=== PATIENT | female | born 1955 | race Caucasian/White ===

== ENCOUNTER → 2016-06-10 | Outpatient (CLI) | payer BC ==
[~2016-06-10] MED LIST: CALC-747 PO; CYAN500T2 PO; IOHEXOL 300 MG/ML 100ml INJECTION ONE; LEVO125T11 PO; NITR100C PO; NORMAL SALINE 100 ML ONE; ONDA4TAB7 PO; PARO-38 PO; PHEN-779 PO; POTA20TA10 PO; PREN1TAB73 PO; SALINE FLUSH 10ml SYRINGE ONE
--- NOTE | 2016-06-10 13:41 | DI ---
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 Coronal and sagittal two-dimensional reformats. Automated Exposure Control and Iterative Reconstruction dose reducing techniques were utilized. Contrast: Omnipaque [address] scan was performed using radiation dose-reduction techniques. CT CHEST FINDINGS: There is a moderate sized esophageal hiatal hernia demonstrated. Cardiovascular: The heart size is normal. No pericardial effusion is present. Lymph nodes: There are no enlarged axillary, hilar, or mediastinal lymph nodes. Lungs: The lungs are normal. Bones: No suspicious or destructive osseous lesions with special attention to the right shoulder. IMPRESSION: 1. No evidence for thoracic ramo or pulmonary metastases/malignancy. 2. Moderate-sized paraesophageal hiatal hernia. 3. No suspicious or destructive osseous lesions with special attention to the right shoulder. CT ABDOMEN AND PELVIS FINDINGS: CT ABDOMEN LIVER: The liver is enlarged with diffuse fatty infiltration. The liver measures 19.6 cm craniocaudally. SPLEEN: The spleen is upper limits normal in size measuring 12.9 cm. GALLBLADDER: Unremarkable. PANCREAS: Unremarkable. ADRENAL GLANDS: Unremarkable. KIDNEYS: There is a hypodense structure involving the lower pole the right kidney anteriorly measuring 1.6 cm x 1.8 cm likely representing a complex cyst. Recommend ultrasound of the kidneys to further evaluate and rule out a solid lesion. Simple cyst within the left kidney. There is no hydronephrosis or obstructing calculus identified. AORTA: Unremarkable. LYMPH NODES: Unremarkable. STOMACH BOWEL LOOPS: There is diverticulosis throughout the sigmoid colon without diverticulitis. Mild mural thickening demonstrated about the proximal colon and cecum may be secondary to decompressed bowel although a underlying colitis is a consideration. PERITONEAL CAVITY: There is no abdominal or pelvic inflammatory mass or ascites. CT PELVIS URINARY BLADDER: Unremarkable. PELVIC VISCERA: The vaginal cuff is normal. There are no adnexal masses. OSSEOUS STRUCTURES: There are no suspicious or destructive osseous lesions demonstrated. Small to moderate-sized left hip joint effusion is suggested. IMPRESSION: 1. Hypodense structure involving the right kidney likely representing a complex cyst though recommend ultrasound to further evaluate and rule out a solid mass. 2. No abdominal or pelvic lymphadenopathy or ascites. 3. Diverticulosis of the sigmoid colon without diverticulitis. Mild mural thickening about the the proximal colon likely secondary to decompressed bowel and less likely colitis. 4. No suspicious or destructive osseous lesions. Small to moderate sized left hip joint effusion suggested. Clinical correlation about the left hip recommended. 5. Mild hepatomegaly with diffuse fatty infiltration. .
== END ==
LOC: IMA 11:21
PROVIDERS: ATTEND Orthopaedic Surgery
DX: K44.9 Diaphragmatic hernia without obstruction or gangrene (principal); K57.30 Diverticulosis of large intestine without perforation or abscess without bleeding; K63.89 Other specified diseases of intestine; K76.0 Fatty (change of) liver, not elsewhere classified; N28.9 Disorder of kidney and ureter, unspecified; D49.2 Neoplasm of unspecified behavior of bone, soft tissue, and skin
CPT/HCPCS: 71260; 74177; J7050; Q9967

== ENCOUNTER → 2016-06-11 | Outpatient (CLI) | payer BC ==
[~2016-06-11] MED LIST changes: -IOHEXOL 300 MG/ML 100ml INJECTION ONE; -NORMAL SALINE 100 ML ONE; -SALINE FLUSH 10ml SYRINGE ONE
== END ==
LOC: WC.BC 16:04
DX: Z12.31 Encounter for screening mammogram for malignant neoplasm of breast (principal); N64.59 Other signs and symptoms in breast
CPT/HCPCS: 77063; G0202

== ENCOUNTER → 2016-06-24 | Outpatient (CLI) | payer BC ==
--- NOTE | 2016-06-24 09:35 | DI ---
Indication: ITS.REASON: M89.9 Disorder of bone PROCEDURE: US RENAL: Encounter: Initial Comparison: CT chest, abdomen and pelvis dated June 10, 2016 Technique: Grayscale and color Doppler sonographic imaging of both kidneys and bladder was performed. FINDINGS: Both kidneys are present with normal cortical thickness and echogenicity. No evidence for collecting system dilatation, contour deforming mass, nephrolithiasis, or abnormal perinephric fluid collection. The right kidney measures 10.8 cm in length, and the left kidney measures 11.5 cm in length. The area of abnormality on CT appears to represent a benign cyst in the right kidney measuring 1.5 x 1.5 x 1.6 cm there may be a trace amount of calcification within the wall of the cyst. No internal Doppler flow or solid component appreciated. Left kidney shows a small 1.1 x 0.9 x 1.1 cm superior pole anechoic cyst. Bladder appears sonographically normal without debris or mass. Right ureteral jet noted IMPRESSION: The right renal lesion seen by CT appears to represent a benign cyst. Follow-up ultrasound is recommended in one year to confirm stability. .
== END ==
LOC: IMA 08:00
PROVIDERS: ATTEND Orthopaedic Surgery
DX: R93.421 Abnormal radiologic findings on diagnostic imaging of right kidney (principal); M89.9 Disorder of bone, unspecified

== ENCOUNTER 2016-11-04 10:20 | Inpatient (IN) ==
[2016-11-20 05:43] VITALS: BMI 27.2
[2016-11-20] MEDS ORDERED: FAMOTIDINE PB 20 MG/50 ML BAG IV ONE (06:00)
[2016-11-20] MEDS ORDERED: LIDOCAINE 1% (10mg/ml) 2mL INJ PF SDV ID ONE (06:00)
[2016-11-20] MEDS ORDERED: ACETAMINOPHEN 500 MG TABLET PO ONE (06:00)
[2016-11-20] MEDS ORDERED: CEFAZOLIN 1 G INJECTION IVP ONE (06:00)
[2016-11-20] MEDS ORDERED: NOZIN NASAL SWAB NAS ONE ×2 (06:00→10:22)
[2016-11-20] MEDS ORDERED: DEXAMETHASONE 4 MG/ML INJECTION IVP ONE (06:00)
[2016-11-20] MEDS ORDERED: ONDANSETRON 4 MG/2 ML INJECTION IVP ONE (06:00)
[2016-11-20] MEDS ORDERED: METOCLOPRAMIDE 10mg/2ml INJECTION IVP ONE (06:00)
[2016-11-20] MEDS: LR 1,000 ML IV SCH ×3 (06:19→08:54)
--- NOTE | 2016-11-20 06:47 | Anesthesia Preoperative Report ---
Anesthesia Preoperative Record - Date and Time Date: 11/20/16 Preoperative Diagnosis: Lt NORM (RA) M87.052 primary osteoarthritis Proposed Procedure: left total hip arthroplasty NPO Since Date: 11/19/16 NPO Since Time: 23:00 Allergies/Adverse Reactions: Allergies Allergy/AdvReac Type Severity Reaction Status Date / Time No Known Allergies Allergy Verified 11/20/16 06:03 - Vital Signs Vital Signs: Temperature 98.1 F 11/20/16 05:44 Pulse Rate 82 11/20/16 06:03 Respiratory Rate 18 11/20/16 05:44 Blood Pressure 160/92 H 11/20/16 05:44 Pulse Oximetry 95 11/20/16 05:44 Oxygen Delivery Method Room Air Height and Weight: Height 1.65 m Weight 74.2 kg Body Mass Index 27.2 - Medications Inpatient Medications: Current Medications Epinephrine HCl 0.25 mg/Bupivacaine HCl 30 ml/Morphine Sulfate 15 mg/Ketorolac Tromethamine 60 mg/Sodium Chloride 65.25 mls @ 1 mls/hr OPSITE INTRAOP ONE PRN Reason: Protocol Stop: 11/23/16 01:14 Lactated Ringer's (Lactated Ringers) 1,000 mls @ 50 mls/hr IV .Q20H ANABEL Last Admin: 11/20/16 06:19 Dose: 50 mls/hr Miscellaneous Medication (Tranexamic 1gm/Ns 100 Irr Mix) 100 ml IR O ONE Stop: 11/20/16 14:38 Sodium Chloride (Iv Flush) 10 - 80 ml IVF PRN PRN PRN Reason: Flushing Home Medications: Home Medications Medication Instructions Recorded Confirmed Type lisinopril 20 mg tablet 20 mg PO DAILY 90 Days tab 09/13/16 11/20/16 History pravastatin 20 mg tablet 20 mg PO DAILY 90 Days tab 09/13/16 11/20/16 History Mobic (Meloxicam) 15 mg tablet 15 mg PO DAILY tab 09/24/16 11/03/16 History Cyanocobalamin (Vitamin B-12) 1 tab PO DAILY 10/06/16 11/20/16 History [Vitamin B-12] Ferrous Gluconate 1 tab PO BIDWM 10/28/16 11/20/16 History Sertraline HCl [Zoloft] 50 mg PO DAILY 08/01/17 08/24/17 History ALPRAZolam [Xanax] 1 tab PO DAILY PRN 11/03/16 11/20/16 History Is Patient on Beta Puja?: Yes Beta Puja Last Dose Date/Time: 329 - Medical History Cardiovascular: Reports: Arrhythmia (afib ), Hypertension Neuro/Musculoskeletal: Reports: Cerebrovascular Accident (TIA in 2000, numb on right side no residual ), Other (aniety ) - Surgical History Cardiac Surgeries/Treatments: Reports: Cardiac Catheterization Musculoskeletal Surgery/Tx: Reports: Shoulder Arthroscopy (removed tumor right) , Total Knee Replacement (Rt TKA 2012), Other (Rt shoulder open biopsy, curettage/grafting rt prox humerus ) Reproductive Surgery/Treatment: Reports: Hysterectomy, Laparoscopy (ovarian cystectomy) Anesthesia Reactions: Other (hard to wake up ) - Social History Smoking Status: Never smoker - Pertinent Findings Laboratory: CBC and BMP 11/20/16 05:51 11/20/16 05:51 BMP 11/20/16 05:51 Sodium 142 Potassium 3.9 Chloride 98 Carbon Dioxide 30 BUN 22.0 H Creatinine 1.0 Glucose 105 Calcium 9.2 EKG Rhythm: Normal Sinus Rhythm - Physical Exam Respiratory Exam: Present: lungs clear, bilateral breath sounds equal Cardiovascular Exam: Present: regular rate and rhythm, no murmur - Airway Assessment Mallampati Score: I TMD: 3 Fingerbreadths Neck Extension: good Teeth: upper dentures, lower dentures Overall Assessment: no airway concerns - ASA ASA Score: 2 - Plan Regional/Trunk Block: Spinal - Discussion Discussion: Discussed risks/options/alternatives of anesthesia and questions answered. Patient consents. Nursing pain assessment noted. Attestation Statement: Prior to the delivery of any anesthetic medication, I examined the patient, developed the plan, obtained the patient's consent and discussed the risk and benefits of the procedure with the patient/guardian.
--- NOTE | 2016-11-20 07:23 | History & Physical Update ---
- History and Physical Update Date: 11/20/16 Update: I evaluated this patient and found no changes in the history and clinical exam findings. The treatment plan and recommendations are also unchanged from the previous documentation.
[2016-11-20] MEDS ORDERED: EPINEPHrine 0.25 MG, BUPIVACAINE 0.25% PF 30 ML, MORPHINE SULFATE 15 MG, KETOROLAC INJ ... OPSITE ONE (08:00)
[2016-11-20] MEDS ORDERED: VANCOMYCIN 1,000 MG INJECTION IAR ONE (08:55)
--- NOTE | 2016-11-20 10:16 | Anesthesia Postoperative Note ---
- Date and Time Date: 11/20/16 Time: 09:55 - Status Patient Participated in Evaluation: Patient Participated in Person Vital Signs: Temperature 98 F 11/20/16 09:22 Pulse Rate 98 11/20/16 09:22 Respiratory Rate 12 11/20/16 09:22 Blood Pressure 124/62 11/20/16 09:22 Pulse Oximetry 98 11/20/16 09:22 Oxygen Delivery Method Room Air Respiratory Function: Airway Patent EKG Rhythm: Normal Sinus Rhythm Mental Status: Alert and Oriented Pain Intensity: 3 Hydration: IV Infusing Complications During Recover: None Apparent - Follow-Up Instructions Instructions: Per Surgeon
[2016-11-20] MEDS ORDERED: DiphenhydrAMINE 25 MG CAPSULE PO PRN (10:22)
[2016-11-20] MEDS ORDERED: DiphenhydrAMINE 50 MG/ML INJECTION IVP PRN (10:22)
[2016-11-20] MEDS ORDERED: ONDANSETRON 4 MG/2 ML INJECTION IVP PRN (10:22)
[2016-11-20] MEDS ORDERED: ALPRAZolam 0.25 MG TABLET PO PRN (10:22)
[2016-11-20] MEDS: NS 1,000 ML IV SCH (10:34)
[2016-11-20] MEDS: FLECAINIDE 50 MG TABLET PO SCH ×2 (10:48→21:34)
[2016-11-20] MEDS: LISINOPRIL 20 MG TABLET PO SCH ×2 (10:49→13:55)
--- NOTE | 2016-11-20 11:44 | XRay Report ---
Indication: postoperative image PROCEDURE: XR pelvis w/ 1 view LT hip: Encounter: Initial Comparison: CT dated October 13, 2016 Findings: Postoperative changes of left total hip replacement are seen. There is expected postoperative subcutaneous gas. No evidence of hardware failure or acute fracture. No retained radiopaque surgical instruments or sponges seen. Impression: New left total hip prosthesis without evidence of immediate complication. .
[2016-11-20] MEDS: Oxycodone *IR* 5 MG TABLET PO PRN ×4 (11:53→21:37)
[2016-11-20] MEDS: ACETAMINOPHEN 325 MG TABLET PO SCH ×4 (11:54→21:33)
[2016-11-20] MEDS: OMEPRAZOLE 20 MG CAPSULE PO SCH (12:28)
--- NOTE | 2016-11-20 12:47 | Operative Note ---
- Procedure Side: left Preoperative Diagnosis: other (left femoral head avascular necrosis) Postoperative Diagnosis: Same as preoperative diagnosis. Operation: total hip arthroplasty Surgeon: Leatha Garzon MD Rehabilitation Specialist: Otoniel Arnold Complications: None. Regional/Trunk Block: Spinal Estimated Blood Loss: See Anesthesia Record. Fluids: Please see Anesthesia Record. Description of Procedure: Mrs. Olmstead and her left hip were identified and marked in the preoperative holding area. She was brought back to the operating suite and spinal anesthetic was administered. She was then placed in a lateral decubitus position with her left hip up. The left lower extremity was prepped and draped in my normal sterile fashion. Timeout was performed. The Cono-C robotic arm was used to assist with the surgery. Pelvic array was placed into the iliac brim. A direct superior approach was utilized. There was considerable fatty changes in her musculature. An approximately 12 cm incision was made in the skin and dissection carried down to the muscle fascia which was then split in line with skin incision. A checkpoint was placed in the greater trochanter. The short external rotators were identified and tagged and detached. A capsulotomy was performed and the hip dislocated. A femoral neck osteotomy was performed at the pre-templated level measuring down from the femoral head. The head was removed and acetabulum exposed. Labrum was removed. A checkpoint was placed superior to the acetabulum. The acetabulum was then registered with the robot. The robotic arm was then used to ream with a 49 reamer. The robot then was again used to place a 50 Trident cup in 40 of tilt and 25 of anteversion. A liner was then placed. The proximal femur was exposed and prepared with a cookie cutter followed by reaming and broaching to a size 5. We trialed with a +2.5 head. After thorough irrigation a final Accolade 2 size stem with 127 neck was placed. Leg length and offset were checked with the robot and were good. A final +2.5 ceramic head was placed and the hip reduced. Betadine solution was used to irrigate throughout the case. It was followed by normal saline irrigation. 1 g of TXA was allowed to sit in the wound for 5 minutes and then suctioned out. Joint cocktail was injected throughout soft tissue. The capsulotomy was repaired with Ethibond. Short external rotators were also repaired with Ethibond. 1 g of vancomycin powder was placed into the wound. The muscle fascia was then repaired with #1 Vicryl. I then left my system to close the subcutaneous tissue with 2-0 Vicryl followed by running 4-0 Monocryl skin followed by Dermabond and a sterile dressing. The patient with any placed back into supine position and taken to recovery room in the care of anesthesia.
[2016-11-20] MEDS: CYANOCOBALAMIN (B-12) 500mcg TABLET PO SCH (13:54)
[2016-11-20] MEDS: DOCUSATE SODIUM 100 MG CAPSULE PO SCH ×2 (13:54→21:34)
[2016-11-20] MEDS: LEVOTHYROXINE 100 MCG TABLET PO SCH (13:55)
[2016-11-20] MEDS: POLYETHYL GLYCOL 3350 17gm PACKET PO SCH (13:56)
[2016-11-20] MEDS: SERTRALINE 50 MG TABLET PO SCH (13:58)
[2016-11-20] MEDS ORDERED: SALINE FLUSH 10ml SYRINGE IVF PRN (14:28)
[2016-11-20] MEDS ORDERED: TRANEXAMIC ACID 1gm/NS 100ml IRR MIX IR ONE (14:37)
--- NOTE | 2016-11-20 14:46 | Orthopedic Progress Note ---
Date: Orthopedic Objective PO Vital signs: Temperature 96.1 F L 11/20/16 10:41 Pulse Rate 107 H 11/20/16 14:13 Respiratory Rate 16 11/20/16 10:43 Blood Pressure 139/72 11/20/16 14:13 Pulse Oximetry 95 11/20/16 14:13 Oxygen Delivery Method Room Air Height and Weight: Height 5 ft 5 in Weight 169 lb 1.513 oz Body Mass Index 27.2 - Labs Result Diagrams: 11/20/16 05:51 11/20/16 05:51 Abnormal lab results 11/20/16 11/20/16 Range/Units 05:51 05:51 Lymph % (Auto) 22.3 L (23-45) % Grant % (Auto) 10.6 H (0-9.0) % BUN 22.0 H (7-17) MG/DL Specimen Hemolysis 36 H (0-25) H & H 11/20/16 Range/Units 05:51 Hgb 13.1 (12-16) GM/DL Hct 40.8 (36-46) % Hospital Course Summary Disclaimer: The visit summary below is not to be considered part of the above Progress Note.
[2016-11-20] MEDS: NOZIN NASAL SWAB NAS SCH ×2 (15:04→21:33)
[2016-11-20] MEDS: FERROUS GLUCONATE 324 MG TABLET PO SCH ×2 (15:06→18:23)
[2016-11-20] MEDS: CEFAZOLIN 2 G in NS 100 ML IV SCH ×2 (15:13→23:19)
[2016-11-20] MEDS: RIVAROXABAN 20 MG TABLET PO SCH (18:26)
[2016-11-20] MEDS: PRAVASTATIN 20 MG TABLET PO SCH (21:34)
[2016-11-20] MEDS: SENNOSIDES 8.6 MG TABLET PO SCH (21:34)
[2016-11-20] MEDS ORDERED: FALL RISK - PHARMACY CONSULT MC PRN (22:39)
[2016-11-21] MEDS: NS 1,000 ML IV SCH (01:02)
[2016-11-21] MEDS: Oxycodone *IR* 5 MG TABLET PO PRN ×4 (01:13→20:58)
[2016-11-21] MEDS: LEVOTHYROXINE 100 MCG TABLET PO SCH (05:59)
[2016-11-21] MEDS: OMEPRAZOLE 20 MG CAPSULE PO SCH (05:59)
[2016-11-21] MEDS: NOZIN NASAL SWAB NAS SCH ×3 (05:59→21:24)
[2016-11-21] MEDS ORDERED: SENNOSIDES 8.6 MG TABLET PO PRN (07:25)
[2016-11-21] MEDS: POLYETHYL GLYCOL 3350 17gm PACKET PO SCH (08:03)
[2016-11-21] MEDS: DOCUSATE SODIUM 100 MG CAPSULE PO SCH ×2 (08:05→20:58)
[2016-11-21] MEDS: ACETAMINOPHEN 325 MG TABLET PO SCH ×4 (08:10→20:57)
[2016-11-21] MEDS: CYANOCOBALAMIN (B-12) 500mcg TABLET PO SCH (08:10)
[2016-11-21] MEDS: FLECAINIDE 50 MG TABLET PO SCH ×2 (08:10→21:24)
[2016-11-21] MEDS: FERROUS GLUCONATE 324 MG TABLET PO SCH ×2 (08:15→16:55)
[2016-11-21] MEDS: SERTRALINE 50 MG TABLET PO SCH (08:15)
[2016-11-21] MEDS: LORazepam 1 MG TABLET PO PRN ×2 (09:17→19:35)
--- NOTE | 2016-11-21 09:25 | Orthopedic Progress Note ---
Date: Subjective/Severity of Illness: Lauren is doing well but reports her pain is not well controlled. She has a history of anxiety and feels that is part of what she is feeling. No CP, cough or SOA. Denies racing HR. She was active yesterday with therapy. Orthopedic Objective PO Vital signs: Temperature 98.1 F 11/21/16 07:30 Pulse Rate 89 11/21/16 08:07 Respiratory Rate 18 11/21/16 07:30 Blood Pressure 107/65 11/21/16 08:07 Pulse Oximetry 98 11/21/16 07:30 Oxygen Delivery Method Room Air Height and Weight: Height 5 ft 5 in Weight 169 lb 1.513 oz Body Mass Index 27.2 - Constitutional General Appearance: Present: alert, no acute distress, mild distress - Respiratory Exam Present: non-labored - Cardiovascular Exam Present: pedal pulses intact - Extremities Exam Extremities: Present: pulses intact. Absent: calf tenderness - Surgical Site Incision: Mepilex dressing intact, no drainage - Neurological Exam Present: no deficits - Psychiatric Exam Present: alert, other (Appears anxious this AM.) - Labs Result Diagrams: 11/21/16 04:18 11/21/16 04:18 Abnormal lab results 11/21/16 11/21/16 Range/Units 04:18 04:18 RBC 2.97 L (4.00-5.20) M/MM3 Hgb 9.2 L D (12-16) GM/DL Hct 30.0 L D (36-46) % MCV 101.0 H (80-100) UM3 MCHC 30.7 L (31-37) GM/DL Calcium 8.3 L D (8.4-10.2) MG/DL H & H 11/20/16 11/21/16 Range/Units 05:51 04:18 Hgb 13.1 9.2 L D (12-16) GM/DL Hct 40.8 30.0 L D (36-46) % Orthopedic Assessment and Plan (1) Avascular necrosis of bone of left hip Status: Acute Assessment and Plan: Left NORM 11/20/16 A fib appears under control with HR and Rhy stable. Resume meds for control. Resume Xarelto for A fib and DVT coverage SCDs in place. Continue to mobilize. Add Ativan for anxiety. Hold Prinivil for BP 90/60s. Will continue to monitor. Hospital Course Summary Disclaimer: The visit summary below is not to be considered part of the above Progress Note.
[2016-11-21] MEDS ORDERED: HYDROMORPHONE 2 MG/ML INJECTION IVP PRN ×2 (10:34→20:49)
--- NOTE | 2016-11-21 15:07 | Consult Note ---
<EduarRaysa Mercy - Last Filed: 11/21/16 15:03> Consult Information - Data of Consult Patient: new to practice Consult date: 11/21/16 Requesting Physician: Aime Garzon MD Primary Care Provider: Claudy Abel MD Family Provider: Claudy Abel MD - Consult Narrative Reason for consult: Low BP History of present illness: Lauren Olmstead is a 61 y/o woman seen in consultation from Dr. Garzon for postop hypotension. She had left hip total arthroplasty on 11/20/16. BP dropped as low as 65/46 in the afternoon of 11/21/16. AntiHTN have been held. She was actually recently hospitalized on 11/04/16 for heart catheterization. Her BP was uncontrolled, and she was discharged on metoprolol tartrate 12.5 mg BID in addition for flecainide and xarelto for a-fib. Lauren was seen resting in bed but A&O x4, visiting with a friend. She denies any symptoms of hypotension - no weakness, dizziness, near-syncope, vision changes, SOA, chest pain, palpitations, nausea, abnormal diaphoresis (states that she tends to sweat a lot), abdominal pain. She also denies any recent illnesses or issues other than the elevated BP issue and hip pain. She states that her appetite has been good and denies constipation or diarrhea. PFSH HTN Stroke atrial fibrillation Anxiety, depression Hepatitis - Uncertain type, 20 years ago. IBS large hiatal hernia iron deficiency anemia Surgical History: Left total hip arthoplasty 11/20/16 Dr. Garzon. Hysterectomy without oophorectomy 1982. Right Total Knee Replacement 2012. Rt shoulder open bx, curettage and grafting of right proximal humerus 06/27/2016. Cyst removed from ovary (2016) Family History: Breast cancer - paternal aunt HTN in Mother and sister and her Maternal GM had a heart attack. - Social History Current residence: Apartment/Private Home Review of Systems Comprehensive ROS: completed and no additional positive findings except those as stated - Constitutional Constitutional: Present: as per HPI - EENMT Eyes: Present: requires corrective lenses. Absent: change in vision Nose: Absent: obstruction Mouth/Throat: Absent: sore throat - Cardiovascular Cardiovascular: Absent: chest pain, syncope, orthopnea, edema - Respiratory Respiratory: Absent: cough, dyspnea - Gastrointestinal Gastrointestinal: Absent: abdominal pain, nausea, vomiting - Genitourinary Menstruation: post hysterectomy - Musculoskeletal Musculoskeletal: Present: as per HPI - Neurological Neurological: Absent: confusion, dizziness, loss of vision, numbness, paresthesias - Psychiatric Psychiatric: Present: anxiety, depression - Endocrine Endocrine: Present: as per HPI Medications Home Medications Medication Instructions Recorded Confirmed Type lisinopril 20 mg tablet 20 mg PO DAILY 90 Days tab 09/13/16 11/20/16 History pravastatin 20 mg tablet 20 mg PO DAILY 90 Days tab 09/13/16 11/20/16 History Mobic (Meloxicam) 15 mg tablet 15 mg PO DAILY tab 09/24/16 11/03/16 History Cyanocobalamin (Vitamin B-12) 1 tab PO DAILY 10/06/16 11/20/16 History [Vitamin B-12] Ferrous Gluconate 1 tab PO BIDWM 10/28/16 11/20/16 History Sertraline HCl [Zoloft] 50 mg PO DAILY 10/28/16 11/20/16 History ALPRAZolam [Xanax] 1 tab PO DAILY PRN 11/03/16 11/20/16 History Allergies Allergy/AdvReac Type Severity Reaction Status Date / Time No Known Allergies Allergy Verified 11/20/16 06:03 Exam Vital Signs: Temperature 97.0 F 11/21/16 12:00 Pulse Rate 88 11/21/16 14:48 Respiratory Rate 16 11/21/16 12:00 Blood Pressure 77/55 11/21/16 14:46 Pulse Oximetry 100 11/21/16 12:00 Oxygen Delivery Method Room Air Height/Weight/BMI: Height 1.65 m Weight 82.3 kg Body Mass Index 27.2 - Constitutional Present: no acute distress, well nourished, well developed - Routine HEENT Exam Eye: Present: EOMI ENT: Present: mucous membranes moist. Absent: dentition normal (dentures in place) - Routine Neck Exam Absent: lymphadenopathy, thyromegaly - Routine Respiratory Exam Present: CTA bilaterally. Absent: wheezes - Routine Cardiovascular Exam Present: RRR, S1, S2 - Routine Abdominal Exam Present: soft, normoactive bowel sounds, non distended. Absent: tenderness - Routine Extremities Exam Present: no edema, pulses intact, normal capillary refill - Routine Skin Exam Present: intact, dry, warm - Routine Neurological Exam Present: alert, oriented X3, CN II-XII intact, normal speech. Absent: facial asymmetry - Routine Psychiatric Exam Present: normal affect, normal thought process, cooperative Results - Labs CBC & Chem 7: 11/21/16 04:18 11/21/16 04:18 Assessment and Plan (1) Postoperative hypotension Current visit: Yes Status: Acute DVT Prophylaxis: Xarelto GI Prophylaxis: other (Prilosec) Resuscitation Status: Full Code Assessment and Plan: Assessment Postoperative hypotension Anemia - blood loss vs. dilutional - iron deficiency anemia atrial fibrillation - on Xarelto HTN, Stroke Anxiety, depression IBS, large hiatal hernia - on PPI Plan Postop hypotension multifactorial given recent anesthesia, narcotics, and newly added BP meds in outpt setting. Hold antiHTN including lisinopril and metoprolol - monitor HR closely as we may need to give some IV BB if she becomes tachycardic. IVF bolus of 250 ml - reassess BP frequently. Renal function is stable. A-fib - continue flecainide and Xarelto. She's currently in sinus rhythm. Follow hgb trends. Discussed with Georgia Altamirano APRN with Dr. Bustos. Thank you for this consult. We will follow Lauren along with you during her hospital course. Hospital Course Summary Disclaimer: The visit summary below is not to be considered part of the above Progress Note. Sepsis Assessment - Evaluation Sepsis screening result: No Definite Risk <RachelKushal wellingtonrichard Schmidt - Last Filed: 11/21/16 16:20> Consult Information - Data of Consult Requesting Physician: Aime Garzon MD Primary Care Provider: Claudy Abel MD Family Provider: Claudy Abel MD [facility] Patient Stated Medical History Family History: Family History (Last Reviewed 10/09/16 @ 08:59 by Rena Bonilla Richard) Paternal Aunt Breast cancer Maternal Grandmother Heart attack Mother Hypertension Sister Hypertension - Social History Smoking status: Never smoker Substance use type: does not use Alcohol intake frequency: a few times a week (history alcohol abuse, has cut down to 2 bottles of rum a month) Last drink: days (ago) (7) Exam Vital Signs: Temperature 97.0 F 11/21/16 12:00 Pulse Rate 88 11/21/16 15:46 Respiratory Rate 16 11/21/16 12:00 Blood Pressure 95/65 11/21/16 15:46 Pulse Oximetry 100 11/21/16 12:00 Oxygen Delivery Method Room Air Height/Weight/BMI: Height 1.65 m Weight 82.3 kg Body Mass Index 27.2 Results - Labs CBC & Chem 7: 11/21/16 04:18 11/21/16 04:18 Assessment and Plan (1) Postoperative hypotension Current visit: Yes Status: Acute Assessment and Plan: I have independently evaluated and examined this patient. I reviewed the chart, the patient's history, and the PAYROLL ANALYST/PA's documented findings as above. We discussed and formulated the assessment and plan as above with additions as below: Mrs. Olmstead was seen with her daughter at the bedside. She underwent left TKA yesterday for avascular necrosis. Preoperative and immediately postoperatively blood pressures were stable with progressive drop in blood pressure this morning although patient was able to participate in physical therapy and has been ambulatory. She denies dizziness and reports that she's been voiding well; nursing reports small volume. 500 mL fluid bolus was given prior to my arrival for hypotension but the patient was asymptomatic when standing shortly thereafter despite systolic in the 70s. Pain control has been problematic postoperatively. Patient was supine when seen with pressure of 77/55, she was not tachycardic. Speech was fluent and she appeared relatively comfortable although described hip pain. Respirations nonlabored, good airflow. Regular rhythm, S1-S2 MAEW, sensation intact 4 extremities Hemoglobin has dropped from 13.1 preop to 9.2 this morning; will reassess this afternoon to exclude progressive anemia as contributed to hypotension. Suspect narcotics, anesthesia, antihypertensives, and mild volume depletion postoperatively are causative. May require longer term adjustment in blood pressure regimen and medications are on hold at present time. Twelve-lead EKG reviewed by myself-sinus rhythm, compatible with exam. Telemetry initiated. Thank you for allowing us to participate in this patient's care. Hospital Course Summary Disclaimer: The visit summary below is not to be considered part of the above Progress Note.
[2016-11-21] MEDS: RIVAROXABAN 20 MG TABLET PO SCH (16:55)
[2016-11-21] MEDS: SENNOSIDES 8.6 MG TABLET PO SCH (20:57)
[2016-11-21] MEDS: PRAVASTATIN 20 MG TABLET PO SCH (21:24)
[2016-11-22] MEDS: Oxycodone *IR* 5 MG TABLET PO PRN ×3 (00:50→09:08)
[2016-11-22] MEDS: LORazepam 1 MG TABLET PO PRN ×3 (04:41→22:26)
[2016-11-22] MEDS: LEVOTHYROXINE 100 MCG TABLET PO SCH (07:16)
[2016-11-22] MEDS: OMEPRAZOLE 20 MG CAPSULE PO SCH (07:16)
[2016-11-22] MEDS: NOZIN NASAL SWAB NAS SCH ×3 (07:16→22:26)
[2016-11-22] MEDS: POLYETHYL GLYCOL 3350 17gm PACKET PO SCH (09:07)
[2016-11-22] MEDS: SERTRALINE 50 MG TABLET PO SCH (09:07)
[2016-11-22] MEDS: FERROUS GLUCONATE 324 MG TABLET PO SCH ×2 (09:07→16:46)
[2016-11-22] MEDS: DOCUSATE SODIUM 100 MG CAPSULE PO SCH ×2 (09:07→20:37)
[2016-11-22] MEDS: FLECAINIDE 50 MG TABLET PO SCH ×2 (09:08→20:38)
[2016-11-22] MEDS: CYANOCOBALAMIN (B-12) 500mcg TABLET PO SCH (09:08)
[2016-11-22] MEDS: ACETAMINOPHEN 325 MG TABLET PO SCH ×4 (09:08→20:38)
--- NOTE | 2016-11-22 09:53 | Orthopedic Progress Note ---
Date: Subjective/Severity of Illness: Continues to have severe pain in left thigh only. BP improved. Orthopedic Objective Vital signs: Temperature 99.1 F 11/22/16 08:00 Pulse Rate 101 H 11/22/16 08:00 Respiratory Rate 18 11/22/16 08:00 Blood Pressure 132/77 11/22/16 09:38 Pulse Oximetry 97 11/22/16 08:00 Oxygen Delivery Method Room Air Height and Weight: Height 5 ft 5 in Weight 82.3 kg Body Mass Index 27.2 - Constitutional General Appearance: Present: alert, mild distress - Respiratory Exam Present: non-labored - Cardiovascular Exam Present: Regular Rate/Rhythm, pedal pulses intact Capillary Refill: < 2-3 Seconds - Extremities Exam Present: no edema, pulses intact, normal capillary refill - Neurological Exam Present: no deficits - Psychiatric Exam Present: alert - Wound Management Left Hip Drainage Amount: None Secondary Dressing: Mepilex Left Upper Lateral Thigh Comments: Left thigh soft and compressible - Labs Result Diagrams: 11/22/16 04:34 11/22/16 04:34 Abnormal lab results 11/21/16 11/22/16 11/22/16 Range/Units 16:28 04:34 04:34 RBC 2.47 L (4.00-5.20) M/MM3 Hgb 7.7 L D 7.6 L (12-16) GM/DL Hct 25.6 L D 25.2 L (36-46) % MCV 102.0 H (80-100) UM3 MCHC 30.2 L (31-37) GM/DL Chloride 108 H (98-107) MEQ/L Creatinine 0.6 L (0.7-1.2) MG/DL Calcium 8.1 L (8.4-10.2) MG/DL H & H 11/20/16 11/21/16 11/21/16 Range/Units 05:51 04:18 16:28 Hgb 13.1 9.2 L D 7.7 L D (12-16) GM/DL Hct 40.8 30.0 L D 25.6 L D (36-46) % 11/22/16 Range/Units 04:34 Hgb 7.6 L (12-16) GM/DL Hct 25.2 L (36-46) % Orthopedic Assessment and Plan (1) Avascular necrosis of bone of left hip Status: Acute Assessment and Plan: Xrays yesterday look good. She continues to have severe pain. BP are improved so I will start OxyCONTIN 10mg po BID scheduled to give her a baseline opioid. She was taking 15mg oxycodone q5 hours for the last month before surgery. Hospital Course Summary Disclaimer: The visit summary below is not to be considered part of the above Progress Note.
--- NOTE | 2016-11-22 14:30 | Progress Note ---
<Guera Suero - Last Filed: 11/22/16 14:26> Subjective: Lauren is seen today in follow up. She has been up to the bathroom. Is on phone at the start of our visit, multiple family members in the room. She is in no distress. Reports she is still having some pain. No other c/o are reported. Chart is reviewed for collateral information. Objective Vital signs: Temperature 98.2 F 11/22/16 12:05 Pulse Rate 103 H 11/22/16 12:05 Respiratory Rate 18 11/22/16 12:05 Blood Pressure 100/65 11/22/16 12:05 Pulse Oximetry 100 11/22/16 12:05 Oxygen Delivery Method Room Air Rhythm: Normal Sinus Rhythm Height/Weight/BMI: Height 1.65 m Weight 82.3 kg Body Mass Index 27.2 - Constitutional Present: no acute distress, obese, cooperative - Routine HEENT Exam Head: Present: normocephalic, atraumatic Eye: Present: EOMI, PERRL, normal accommodation ENT: Present: mucous membranes moist - Routine Respiratory Exam Present: CTA bilaterally. Absent: dyspnea, rales, rhonchi, crackles - Routine Cardiovascular Exam Present: RRR, S1, S2, no murmur - Routine Abdominal Exam Present: soft, normoactive bowel sounds, non distended, non tender - Routine Extremities Exam Present: tenderness. Absent: no edema, full ROM - Routine Musculoskeletal Exam Musculoskeletal: Present: no clubbing or cyanosis, limited range of motion - Routine Skin Exam Present: intact, dry, warm - Routine Neurological Exam Present: alert, oriented X3, moving all extremities - Routine Psychiatric Exam Present: normal affect, cooperative Results - Labs CBC & Chem 7: 11/22/16 04:34 11/22/16 04:34 - Impressions Xray hip/pelvis I reviewed imaging. left hip prosthesis noted. Significant stool in colon and rectal vault. Assessment and Plan (1) Postoperative hypotension Current visit: Yes Status: Acute (2) Postoperative anemia due to acute blood loss Current visit: Yes Status: Acute DVT Prophylaxis: Xarelto GI Prophylaxis: Protonix Resuscitation Status: Full Code Assessment and Plan: Medical consult Assessment AVN left hip s/p THR Postoperative hypotension Anemia - blood loss vs. dilutional - iron deficiency anemia atrial fibrillation - on Xarelto HTN, Stroke Anxiety, depression IBS, large hiatal hernia - on PPI Plan: Patient reports feeling better, she states she is anxious to go home. Still reports that pain is an issue. HGB is still low- now 7.6. (admit 13.1) BP is variable, but still some milder lows. Continue to hold BP meds for today. Repeat labs in AM- she may need transfusion prior to discharge. Continue PO iron. Constipation noted on x-ray- continue laxatives. Remains with stable HR, continue Xarelto for Atrial fib. Telemetry monitoring. Will need to resume beta-jenny when BP will tolerate. Overall, she is feeling better and does not report vertigo when she was up. - Time spent with patient 25 - 35 minutes Sepsis Assessment - Evaluation Sepsis screening result: No Definite Risk Hospital Course Summary Disclaimer: The visit summary below is not to be considered part of the above Progress Note. Hospital Course: 11/22/16 14:38 Patient reports feeling better, she states she is anxious to go home. Still reports that pain is an issue. HGB is still low- now 7.6. (admit 13.1) BP is variable, but still some milder lows. Continue to hold BP meds for today. Repeat labs in AM- she may need transfusion prior to discharge. Continue PO iron. Constipation noted on x-ray- continue laxatives. Remains with stable HR, continue Xarelto for Atrial fib. Telemetry monitoring. Will need to resume beta-jenny when BP will tolerate. Overall, she is feeling better and does not report vertigo when she was up. <Macarena Ramos - Last Filed: 11/22/16 18:21> Objective Vital signs: Temperature 98.6 F 11/22/16 16:45 Pulse Rate 100 11/22/16 16:45 Respiratory Rate 18 11/22/16 16:45 Blood Pressure 117/67 11/22/16 16:45 Pulse Oximetry 98 11/22/16 16:45 Oxygen Delivery Method Room Air Height/Weight/BMI: Height 1.65 m Weight 82.3 kg Body Mass Index 27.2 Results - Labs CBC & Chem 7: 11/22/16 04:34 11/22/16 04:34 Assessment and Plan (1) Postoperative hypotension Current visit: Yes Status: Acute (2) Postoperative anemia due to acute blood loss Current visit: Yes Status: Acute Assessment and Plan: I have independently evaluated and examined this patient. I reviewed the chart, the patient's history, and the SECTION BEAMER/PA's documented findings as above. We discussed and formulated the assessment and plan as above with additions as below: Mrs. Brown was seen with her daughter at the bedside. Patient reports that she's doing better since pain medications were modified earlier today. She's had no dyspnea on lightheadedness, or nausea. A bowel movement earlier today. She's been ambulating without difficulty. Telemetry was reviewed by myself earlier-demonstrates sinus rhythm with low-grade sinus tach. The patient is alert and cooperative, respirations are nonlabored with good airflow and clear breath sounds Cardiac rhythm is regular The left hip incisions are covered but there is no evidence of ecchymosis or bruising surrounding the incisions. Blood pressure has been stable overnight with systolics typically a little over 100. No indication of atrial fibrillation. Continue flecainide, blood pressure medications on hold. Discussed with Dr. Garzon. Hospital Course Summary Disclaimer: The visit summary below is not to be considered part of the above Progress Note.
[2016-11-22] MEDS: RIVAROXABAN 20 MG TABLET PO SCH (16:47)
[2016-11-22] MEDS: SALINE FLUSH 10ml SYRINGE IVF PRN ×2 (18:47→20:43)
[2016-11-22] MEDS ORDERED: BISACODYL 10 MG SUPPOSITORY RECTALLY SCH (20:00)
[2016-11-22] MEDS: SENNOSIDES 8.6 MG TABLET PO SCH (20:37)
[2016-11-22] MEDS: PRAVASTATIN 20 MG TABLET PO SCH (20:38)
[2016-11-22] MEDS ORDERED: FALL RISK - PHARMACY CONSULT MC PRN (20:39)
[2016-11-23] MEDS: Oxycodone *IR* 5 MG TABLET PO PRN ×3 (03:03→23:32)
[2016-11-23] MEDS: SALINE FLUSH 10ml SYRINGE IVF PRN (05:55)
[2016-11-23] MEDS: NOZIN NASAL SWAB NAS SCH ×3 (05:55→23:31)
[2016-11-23] MEDS: OMEPRAZOLE 20 MG CAPSULE PO SCH (05:55)
[2016-11-23] MEDS: LEVOTHYROXINE 100 MCG TABLET PO SCH (05:56)
[2016-11-23] MEDS: LORazepam 1 MG TABLET PO PRN (07:18)
[2016-11-23] MEDS: POLYETHYL GLYCOL 3350 17gm PACKET PO SCH (08:15)
[2016-11-23] MEDS: DOCUSATE SODIUM 100 MG CAPSULE PO SCH ×2 (08:15→20:06)
[2016-11-23] MEDS: SERTRALINE 50 MG TABLET PO SCH (08:17)
[2016-11-23] MEDS: CYANOCOBALAMIN (B-12) 500mcg TABLET PO SCH (08:17)
[2016-11-23] MEDS: FLECAINIDE 50 MG TABLET PO SCH ×2 (08:18→20:05)
[2016-11-23] MEDS: ACETAMINOPHEN 325 MG TABLET PO SCH ×4 (08:18→20:05)
[2016-11-23] MEDS: FERROUS GLUCONATE 324 MG TABLET PO SCH ×2 (08:18→17:00)
--- NOTE | 2016-11-23 09:15 | XRay Report ---
Indication: Pain PROCEDURE: XR pelvis w/ 1 view LT hip: Encounter: Initial Comparison: November 20, 2016 Findings: There is no acute fracture, dislocation or malalignment identified. Left hip replacement appears stable. Impression: No acute osseous abnormality. .
--- NOTE | 2016-11-23 09:57 | Orthopedic Progress Note ---
Date: Subjective/Severity of Illness: Lauren is doing much better per nursing and family. She was up to walk twice yesterday. Patient is sleeping comfortably when I stopped by today. I spoke with family. Orthopedic Objective Vital signs: Temperature 96.1 F L 11/23/16 07:09 Pulse Rate 95 11/23/16 07:31 Respiratory Rate 20 11/23/16 07:09 Blood Pressure 143/93 H 11/23/16 07:09 Pulse Oximetry 97 11/23/16 07:09 Oxygen Delivery Method Room Air Height and Weight: Height 5 ft 5 in Weight 81.8 kg Body Mass Index 27.2 - Labs Result Diagrams: 11/23/16 03:46 11/23/16 03:46 Abnormal lab results 11/23/16 11/23/16 Range/Units 03:46 03:46 WBC 4.2 L (4.5-11.0) T/MM3 RBC 2.43 L (4.00-5.20) M/MM3 Hgb 7.4 L (12-16) GM/DL Hct 25.1 L (36-46) % MCV 103.3 H (80-100) UM3 MCHC 29.5 L (31-37) GM/DL Carbon Dioxide 31 H (22-30) MEQ/L Creatinine 0.5 L (0.7-1.2) MG/DL H & H 11/20/16 11/21/16 11/21/16 Range/Units 05:51 04:18 16:28 Hgb 13.1 9.2 L D 7.7 L D (12-16) GM/DL Hct 40.8 30.0 L D 25.6 L D (36-46) % 11/22/16 11/23/16 Range/Units 04:34 03:46 Hgb 7.6 L 7.4 L (12-16) GM/DL Hct 25.2 L 25.1 L (36-46) % Orthopedic Assessment and Plan (1) Avascular necrosis of bone of left hip Status: Acute Assessment and Plan: pain improved on the oxycontin will put in for a rehab screen tomorrow monitor hgb Hospital Course Summary Disclaimer: The visit summary below is not to be considered part of the above Progress Note. Hospital Course: 11/22/16 14:38 Patient reports feeling better, she states she is anxious to go home. Still reports that pain is an issue. HGB is still low- now 7.6. (admit 13.1) BP is variable, but still some milder lows. Continue to hold BP meds for today. Repeat labs in AM- she may need transfusion prior to discharge. Continue PO iron. Constipation noted on x-ray- continue laxatives. Remains with stable HR, continue Xarelto for Atrial fib. Telemetry monitoring. Will need to resume beta-jenny when BP will tolerate. Overall, she is feeling better and does not report vertigo when she was up.
--- NOTE | 2016-11-23 12:18 | Progress Note ---
Subjective: Lauren continues to have difficulty with pain in her left hip but it's adequately controlled with oral medications. She reports no dyspnea, palpitations or chest pain, nausea or vomiting, or fever. She has continued to ambulate several times daily and reports having a bowel movement again today after having several stools yesterday. She denied lightheadedness. Objective Vital signs: Temperature 97.5 F 11/23/16 11:21 Pulse Rate 93 11/23/16 11:21 Respiratory Rate 16 11/23/16 11:21 Blood Pressure 163/87 H 11/23/16 11:21 Pulse Oximetry 96 11/23/16 11:21 Oxygen Delivery Method Room Air EXAM General-NAD, alert, appears much more comfortable than prior evaluations HEENT-conjugate gaze, conjunctiva clear Lungs-respirations nonlabored, good airflow, breath sounds clear anteriorly/ posteriorly Cardiac-regular rhythm, S1-S2; sinus rhythm on telemetry by my review Abd-soft, nontender, bowel sounds present although somewhat diminished Ext-without edema Neuro-sensation/dorsiflexion/plantarflexion intact distal legs bilaterally Psych-calm, cooperative - Rhythm: Normal Sinus Rhythm Height/Weight/BMI: Height 1.65 m Weight 81.8 kg Body Mass Index 27.2 Results - Labs CBC & Chem 7: 11/23/16 03:46 11/23/16 03:46 Assessment and Plan (1) Postoperative hypotension Current visit: Yes Status: Acute (2) Postoperative anemia due to acute blood loss Current visit: Yes Status: Acute DVT Prophylaxis: Xarelto Resuscitation Status: Full Code Assessment and Plan: Assessment: AVN left hip s/p THR Postoperative hypotension Anemia - blood loss vs. dilutional - iron deficiency anemia atrial fibrillation - on Xarelto HTN Hx Stroke Anxiety, depression IBS, large hiatal hernia - on PPI Plan: Clinically stable, blood pressure beginning to normalize with systolics ranging from 112-163 over the last 12 hours. Heart rate in the 90s typically, resume metoprolol at 12.5 mg twice a day; I'll reassess blood pressure later in the day to determine if lisinopril should be resumed. Hemoglobin down slightly from yesterday, likely approaching linette. Continue iron and monitor intermittently. Telemetry strips reviewed-sinus rhythm, A. fib controlled with flecainide. Continue Xarelto due to history of paroxysmal atrial fibrillation. Patient reminded to continue using of incentive spirometer and that surgical pain is temporary. IRU evaluation pending. Sepsis Assessment - Evaluation Sepsis screening result: No Definite Risk Hospital Course Summary Disclaimer: The visit summary below is not to be considered part of the above Progress Note. Hospital Course: 11/22/16 14:38 Patient reports feeling better, she states she is anxious to go home. Still reports that pain is an issue. HGB is still low- now 7.6. (admit 13.1) BP is variable, but still some milder lows. Continue to hold BP meds for today. Repeat labs in AM- she may need transfusion prior to discharge. Continue PO iron. Constipation noted on x-ray- continue laxatives. Remains with stable HR, continue Xarelto for Atrial fib. Telemetry monitoring. Will need to resume beta-jenny when BP will tolerate. Overall, she is feeling better and does not report vertigo when she was up. 11/23/16 12:26 Clinically stable, blood pressure beginning to normalize with systolics ranging from 112-163 over the last 12 hours. Heart rate in the 90s typically, resume metoprolol at 12.5 mg twice a day; I'll reassess blood pressure later in the day to determine if lisinopril should be resumed. Hemoglobin down slightly from yesterday, likely approaching linette. Continue iron and monitor intermittently. Telemetry strips reviewed-sinus rhythm, A. fib controlled with flecainide. Continue Xarelto due to history of paroxysmal atrial fibrillation. Patient reminded to continue using of incentive spirometer and that surgical pain is temporary. IRU evaluation pending.
[2016-11-23] MEDS: RIVAROXABAN 20 MG TABLET PO SCH (16:59)
[2016-11-23] MEDS: PRAVASTATIN 20 MG TABLET PO SCH (20:06)
[2016-11-23] MEDS: SENNOSIDES 8.6 MG TABLET PO SCH (20:06)
[2016-11-24] MEDS: SALINE FLUSH 10ml SYRINGE IVF PRN (05:29)
[2016-11-24] MEDS: Oxycodone *IR* 5 MG TABLET PO PRN ×4 (05:29→18:38)
[2016-11-24] MEDS: LEVOTHYROXINE 100 MCG TABLET PO SCH (05:30)
[2016-11-24] MEDS: NOZIN NASAL SWAB NAS SCH ×2 (05:30→16:07)
[2016-11-24] MEDS: OMEPRAZOLE 20 MG CAPSULE PO SCH (05:30)
--- NOTE | 2016-11-24 08:07 | Orthopedic Progress Note ---
Date: Subjective/Severity of Illness: Lauren is still having quite a bit of pain but admits it is improved with OxyContin. No CP, Cough or SOA. Bowels have moved. Appetite is fair. She did not sleep well last night. Concerned about going home and not being able to care for herself. Orthopedic Objective PO Vital signs: Temperature 96.9 F 11/24/16 04:00 Pulse Rate 87 11/24/16 04:00 Respiratory Rate 20 11/24/16 04:00 Blood Pressure 157/98 H 11/24/16 04:00 Pulse Oximetry 98 11/24/16 04:00 Oxygen Delivery Method Room Air Height and Weight: Height 5 ft 5 in Weight 180 lb 5.41 oz Body Mass Index 27.2 - Constitutional General Appearance: Present: alert, cooperative, no acute distress - Respiratory Exam Present: non-labored - Cardiovascular Exam Present: Regular Rate/Rhythm, pedal pulses intact - Extremities Exam Extremities: Present: pulses intact. Absent: calf tenderness - Surgical Site Incision: Mepilex dressing intact, no drainage - Neurological Exam Present: no deficits - Psychiatric Exam Present: alert - Wound Management Left Hip Drainage Amount: None Secondary Dressing: Mepilex - Labs Result Diagrams: 11/23/16 03:46 11/23/16 03:46 H & H 11/20/16 11/21/16 11/21/16 Range/Units 05:51 04:18 16:28 Hgb 13.1 9.2 L D 7.7 L D (12-16) GM/DL Hct 40.8 30.0 L D 25.6 L D (36-46) % 11/22/16 11/23/16 Range/Units 04:34 03:46 Hgb 7.6 L 7.4 L (12-16) GM/DL Hct 25.2 L 25.1 L (36-46) % Orthopedic Assessment and Plan (1) Avascular necrosis of bone of left hip Status: Acute Assessment and Plan: Xarelto for A.Fib and DVT coverage. SCDs in place. Mobilize with PT / OT. IRU screen today. Hospital Course Summary Disclaimer: The visit summary below is not to be considered part of the above Progress Note. Hospital Course: 11/22/16 14:38 Patient reports feeling better, she states she is anxious to go home. Still reports that pain is an issue. HGB is still low- now 7.6. (admit 13.1) BP is variable, but still some milder lows. Continue to hold BP meds for today. Repeat labs in AM- she may need transfusion prior to discharge. Continue PO iron. Constipation noted on x-ray- continue laxatives. Remains with stable HR, continue Xarelto for Atrial fib. Telemetry monitoring. Will need to resume beta-jenny when BP will tolerate. Overall, she is feeling better and does not report vertigo when she was up. 11/23/16 12:26 Clinically stable, blood pressure beginning to normalize with systolics ranging from 112-163 over the last 12 hours. Heart rate in the 90s typically, resume metoprolol at 12.5 mg twice a day; I'll reassess blood pressure later in the day to determine if lisinopril should be resumed. Hemoglobin down slightly from yesterday, likely approaching linette. Continue iron and monitor intermittently. Telemetry strips reviewed-sinus rhythm, A. fib controlled with flecainide. Continue Xarelto due to history of paroxysmal atrial fibrillation. Patient reminded to continue using of incentive spirometer and that surgical pain is temporary. IRU evaluation pending.
[2016-11-24 08:51] VITALS: RESP 18; O2SAT 100
[2016-11-24] MEDS: ACETAMINOPHEN 325 MG TABLET PO SCH ×3 (09:54→18:39)
[2016-11-24] MEDS: CYANOCOBALAMIN (B-12) 500mcg TABLET PO SCH (09:54)
[2016-11-24] MEDS: SERTRALINE 50 MG TABLET PO SCH (09:54)
[2016-11-24] MEDS: DOCUSATE SODIUM 100 MG CAPSULE PO SCH (09:54)
[2016-11-24] MEDS: FLECAINIDE 50 MG TABLET PO SCH (09:54)
[2016-11-24] MEDS: POLYETHYL GLYCOL 3350 17gm PACKET PO SCH (09:55)
[2016-11-24] MEDS: FERROUS GLUCONATE 324 MG TABLET PO SCH ×2 (09:55→18:39)
[2016-11-24 13:32] VITALS: TEMP 99
--- NOTE | 2016-11-24 14:07 | Progress Note ---
<Raysa Witt Mercy - Last Filed: 11/24/16 14:02> Subjective: Lauren is feeling much better, though pain is her primary issue. She knows her BP has been climbing and plans on following up with Dr. Bustos. She was relieved to hear that her anemia is better on this am's labs. She denies any chest pain, dyspnea, abdominal pain, nausea, or constipation. She is planning on going home later today. Objective Vital signs: Temperature 99.0 F 11/24/16 13:26 Pulse Rate 85 11/24/16 13:26 Respiratory Rate 18 11/24/16 13:26 Blood Pressure 152/86 H 11/24/16 13:26 Pulse Oximetry 100 11/24/16 13:26 Oxygen Delivery Method Room Air Rhythm: Normal Sinus Rhythm Height/Weight/BMI: Height 1.65 m Weight 80.2 kg Body Mass Index 27.2 - Constitutional Present: no acute distress, well nourished, well developed - Routine HEENT Exam ENT: Present: mucous membranes moist, oropharynx clear - Routine Respiratory Exam Present: CTA bilaterally - Routine Cardiovascular Exam Present: RRR, S1, S2 - Routine Abdominal Exam Present: soft, normoactive bowel sounds, non distended, non tender - Routine Extremities Exam Present: no edema, pulses intact, normal capillary refill - Routine Skin Exam Present: intact, dry, warm - Routine Neurological Exam Present: alert, oriented X3 - Routine Psychiatric Exam Present: normal affect, normal thought process, cooperative Results - Labs CBC & Chem 7: 11/24/16 10:20 11/23/16 03:46 Assessment and Plan (1) Postoperative hypotension Current visit: Yes Status: Acute (2) Postoperative anemia due to acute blood loss Current visit: Yes Status: Acute DVT Prophylaxis: Xarelto Assessment and Plan: Assessment: AVN left hip s/p THR Postoperative hypotension Anemia - blood loss vs. dilutional - iron deficiency anemia atrial fibrillation - on Xarelto HTN Hx Stroke Anxiety, depression IBS, large hiatal hernia - on PPI Plan: BP has been climbing and consistently stable; BB and lisinopril have been resumed. Hgb up to 9.5 Pt is doing too well to qualify for IRU - discharge to home is planned. Recommend F/U with Dr. Bustos for HTN and A-fib; F/U with PCP for anemia. Sepsis Assessment - Evaluation Sepsis screening result: No Definite Risk Hospital Course Summary Disclaimer: The visit summary below is not to be considered part of the above Progress Note. Hospital Course: 11/22/16 14:38 Patient reports feeling better, she states she is anxious to go home. Still reports that pain is an issue. HGB is still low- now 7.6. (admit 13.1) BP is variable, but still some milder lows. Continue to hold BP meds for today. Repeat labs in AM- she may need transfusion prior to discharge. Continue PO iron. Constipation noted on x-ray- continue laxatives. Remains with stable HR, continue Xarelto for Atrial fib. Telemetry monitoring. Will need to resume beta-jenny when BP will tolerate. Overall, she is feeling better and does not report vertigo when she was up. 11/23/16 12:26 Clinically stable, blood pressure beginning to normalize with systolics ranging from 112-163 over the last 12 hours. Heart rate in the 90s typically, resume metoprolol at 12.5 mg twice a day; I'll reassess blood pressure later in the day to determine if lisinopril should be resumed. Hemoglobin down slightly from yesterday, likely approaching linette. Continue iron and monitor intermittently. Telemetry strips reviewed-sinus rhythm, A. fib controlled with flecainide. Continue Xarelto due to history of paroxysmal atrial fibrillation. Patient reminded to continue using of incentive spirometer and that surgical pain is temporary. IRU evaluation pending. <Macarena Ramos - Last Filed: 11/24/16 14:29> Objective Vital signs: Temperature 99.0 F 11/24/16 13:26 Pulse Rate 85 11/24/16 13:26 Respiratory Rate 18 11/24/16 13:26 Blood Pressure 152/86 H 11/24/16 13:26 Pulse Oximetry 100 11/24/16 13:26 Oxygen Delivery Method Room Air Height/Weight/BMI: Height 1.65 m Weight 80.2 kg Body Mass Index 27.2 Results - Labs CBC & Chem 7: 11/24/16 10:20 11/23/16 03:46 Assessment and Plan (1) Postoperative hypotension Current visit: Yes Status: Acute (2) Postoperative anemia due to acute blood loss Current visit: Yes Status: Acute Assessment and Plan: I have independently evaluated and examined this patient. I reviewed the chart, the patient's history, and the F[employer]RIC [employer] TEXTILE [employer]CTORY WORKER/PA's documented findings as above. We discussed and formulated the assessment and plan as above with additions as below: Lauren reports feeling well today other than pain in her hip. She's been ambulating and has progressed well such that IRU was no longer needed. She has no concerns unrelated to hip pain. Telemetry reviewed demonstrating sinus rhythm. Patient is alert and appears comfortable. Respirations are nonlabored with good airflow, breath sounds are clear Regular cardiac rhythm Blood pressure has normalized and is moderately elevated-lisinopril resumed earlier this morning and she is now back on usual home regimen. Discussed with orthopedics-stable for discharge home from my perspective on usual medical regimen. Patient advised to follow-up with her usual PCP to reassess blood pressure and hemoglobin in a couple of weeks. Hospital Course Summary Disclaimer: The visit summary below is not to be considered part of the above Progress Note.
--- NOTE | 2016-11-24 14:12 | Discharge Instructions ---
Discharge Plan - Med Rec/Dispo Referrals/Follow Up: Aime Garzon MD [Physician] - 12/10/16 9:45 am Claudy Abel MD [Family Provider] - 2 Weeks (f/u on postoperative anemia) Michael Bustos MD [Physician] - 1 Month (F/U on a-fib and HTN) Prescriptions: New Docusate Sodium [Colace] 100 mg PO BID capsule Continue Cyanocobalamin (Vitamin B-12) [Vitamin B-12] 1 tab PO DAILY Ferrous Gluconate 1 tab PO BIDWM Metoprolol Tartrate [Lopressor] 12.5 mg PO BIDWM #30 tablet Rivaroxaban [Xarelto] 20 mg PO WS #30 tablet Sertraline HCl [Zoloft] 50 mg PO DAILY ALPRAZolam [Xanax] 1 tab PO DAILY PRN PRN Reason: Anxiety Flecainide [Tambocor] 50 mg PO Q12HR #60 tablet pravastatin 20 mg tablet 20 mg PO DAILY 90 Days tab lisinopril 20 mg tablet 20 mg PO DAILY 90 Days tab Prilosec (Omeprazole) 40 mg capsule,delayed release 40 mg PO DAILY #30 cap levothyroxine 100 mcg capsule 100 mcg PO DAILY #30 cap No Action Mobic (Meloxicam) 15 mg tablet 15 mg PO DAILY tab oxycodone-acetaminophen 5 mg-325 mg tablet 1 - 2 tab PO Q6H PRN #12 tab PRN Reason: pain - Disposition [facility]
--- NOTE | 2016-11-24 16:48 | Discharge Summary ---
Orthopedic Discharge Info Date of admission: 11/20/16 05:30 Anticipated date of discharge: 11/24/16 Primary care physician: Claudy Abel MD Attending Physician: Aime Garzon MD Consults: 11/20/16 05:38 Consult to Anesthesiology [CONS] Routine Consulting Provider: EDITH Lloyd Reason For Exam: Preoperative Assessment 11/20/16 10:22 Case Management Consult [CONS] Routine Reason For Exam: Discharge Planning DME-Walker [CONS] Routine Height: 5 ft 5 in Weight: 163 lb 9.328 oz Comment: change dressing in 2 weeks Total Joint Outpatient Therapy [CONS] Routine Comment: change dressing in 2 weeks 11/21/16 14:20 Physician Consult [CONS] Routine Consulting Provider: Macarena Ramos Reason For Exam: Hypotension Ordering Provider has Notified [employer]: Yes 11/23/16 IRU Screening [Inpatient Rehab Screening] [CONS] Routine 11/24/16 IRU Screening [Inpatient Rehab Screening] [CONS] Routine Screen requested by:: Family/Patient Comment Text:: L NORM; POSSIBLE DC 11.24, [employer] - Discharge Diagnosis (1) Avascular necrosis of bone of left hip Status: Acute - Laboratory Result Diagrams: 11/24/16 10:20 11/23/16 03:46 Laboratory: Abnormal lab results 11/24/16 Range/Units 10:20 RBC 3.12 L (4.00-5.20) M/MM3 Hgb 9.5 L D (12-16) GM/DL Hct 32.0 L D (36-46) % MCV 102.6 H (80-100) UM3 MCHC 29.7 L (31-37) GM/DL Neut % (Auto) 77.9 H (33-66) % Lymph % (Auto) 13.0 L (23-45) % Lymph # 0.9 L (1-4.8) T/MM3 H & H 11/20/16 11/21/16 11/21/16 Range/Units 05:51 04:18 16:28 Hgb 13.1 9.2 L D 7.7 L D (12-16) GM/DL Hct 40.8 30.0 L D 25.6 L D (36-46) % 11/22/16 11/23/16 11/24/16 Range/Units 04:34 03:46 10:20 Hgb 7.6 L 7.4 L 9.5 L D (12-16) GM/DL Hct 25.2 L 25.1 L 32.0 L D (36-46) % Orthopedic Discharge HPI - HPI Comments This patient was admitted for elective surgical tx of end stage degenerative joint disease that failed to respond to conservative treatment. Further details of this is found in the admission H&P. Orthopedic Hospital Course Hospital course: 11/24/16 16:45 After appropriate preoperative clearance and signing of operative consent, the patient was given IV antibiotics, according to orthopedic protocol. The patient was taken to the operating room and underwent elective robotic arm assisted left total hip arthroplasty. Following surgery, antibiotics were discontinued less than 24 hours according to joint protocol. Xarelto was resumed and SCDs added for DVT prevention. The dressing was clean, dry, and intact. Pain control was obtained via multimodal approach. Her pain was difficult to control and OxyContin was added to adequately control her pain. The hospitalist was consulted for hypotension issues. All her VS were stable on discharge and BP meds were restarted. Renal function remained stable. Her Hgb did drop into the mid 7gm region but was improving upon discharge. Bowel motivation addressed with scheduled and PRN medications. Early mobilization was initiated through PT services. Discharge arrangements made by a collaborative effort between the patient and Case Management. Follow-up is scheduled in 2-3 weeks. Discharge instructions given by orthopedic providers and nursing staff at discharge. Discharge condition was good. Ongoing care required?: Yes - Postoperative Anemia patient received IVF, labs monitored daily, no intervention required, HGB drop- acceptable - Hypotension IVF provided for support, BP improved/stable at dismissal Discharge Plan - Med Rec/Dispo Referrals/Follow Up: Michael Bustos MD [Physician] - 1 Month (F/U on a-fib and HTN) Aime Garzon MD [Physician] - 12/10/16 9:45 am Claudy Abel MD [Family Provider] - 2 Weeks (f/u on postoperative anemia) Prescriptions: New Docusate Sodium [Colace] 100 mg PO BID capsule Acetaminophen [Tylenol] 650 mg PO QID tablet Oxycodone *Ir* [Roxicodone *Ir*] 5 - 15 mg PO Q3H PRN #60 tab PRN Reason: Breakthrough Pain Oxycodone Cr [OxyCONTIN] 10 mg PO Q12HR #15 tab Continue Cyanocobalamin (Vitamin B-12) [Vitamin B-12] 1 tab PO DAILY Ferrous Gluconate 1 tab PO BIDWM Metoprolol Tartrate [Lopressor] 12.5 mg PO BIDWM #30 tablet Rivaroxaban [Xarelto] 20 mg PO WS #30 tablet Sertraline HCl [Zoloft] 50 mg PO DAILY ALPRAZolam [Xanax] 1 tab PO DAILY PRN PRN Reason: Anxiety Flecainide [Tambocor] 50 mg PO Q12HR #60 tablet pravastatin 20 mg tablet 20 mg PO DAILY 90 Days tab lisinopril 20 mg tablet 20 mg PO DAILY 90 Days tab Mobic (Meloxicam) 15 mg tablet 15 mg PO DAILY tab Prilosec (Omeprazole) 40 mg capsule,delayed release 40 mg PO DAILY #30 cap levothyroxine 100 mcg capsule 100 mcg PO DAILY #30 cap Discontinued oxycodone-acetaminophen 5 mg-325 mg tablet 1 - 2 tab PO Q6H PRN #12 tab PRN Reason: pain - Disposition 01 Discharged Home, Self-Care
[2016-11-24] MEDS: RIVAROXABAN 20 MG TABLET PO SCH (18:38)
[2016-11-24 18:41] VITALS: BP 146/86; PULSE 91
== END 2016-11-24 19:38 | disposition home health service (06) | DRG 470 ==
LOC: SRG 11-20 05:30
PROVIDERS: ADMIT Orthopaedic Surgery; ATTEND Orthopaedic Surgery